=== PATIENT | female | born 1960 | race Caucasian/White ===

== ENCOUNTER → 2021-02-20 | Outpatient (CLI) | payer BC, OTHER ==
--- NOTE | 2021-02-20 11:54 | DIREP ---
PROCEDURE:XRAY SHOULDER MIN 2 VWS-LT COMPARISON:None. INDICATIONS:PAIN IN SHOULDER, STRAIN OF MUSCLES FINDINGS: BONES:Two views of the left shoulder. No acute fracture or dislocation is seen in the left glenohumeral joint. No fracture of the left clavicle, acromion, coracoid process or the glenoid is seen. 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 SOFT TISSUES:Normal. OTHER:Within the field of few, no left upper rib fractures, pneumothorax or left apical lung mass is seen the cardiac silhouette appears to be enlarged. 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 No acute fracture or dislocation is seen. Dictated by: Wilfredo Nolen MD on 02/20/2021 at 11:51 AM
--- NOTE | 2021-02-20 11:55 | DIREP ---
PROCEDURE:XRAY SHOULDER MIN 2 VWS-RT COMPARISON:None. INDICATIONS:PAIN IN SHOULDER, STRAIN OF MUSCLES FINDINGS: BONES:Two views of the right shoulder. No acute fracture or dislocation in the right glenohumeral joint. No fracture of the right clavicle as visualized. No fracture of the acromion, coracoid process or the glenoid is seen. JOINTS:Mild narrowing of the right glenohumeral joint with DJD in the right AC joint with minimally downsloping acromion. SOFT TISSUES:Normal. OTHER:Within the field of few, no right upper rib fractures, pneumothorax or right apical lung mass is seen CONCLUSION:Mild DJD in the right glenohumeral joint and the right AC joint. No acute fracture or dislocation is seen. Dictated by: Wilfredo Nolen MD on 02/20/2021 at 11:52 AM
== END | disposition home or self-care (01) ==
LOC: RAD 10:30
PROVIDERS: ATTEND Nurse Practitioner Family
DX: S46.011A Strain of muscle(s) and tendon(s) of the rotator cuff of right shoulder, initial encounter (principal); M19.012 Primary osteoarthritis, left shoulder; M19.011 Primary osteoarthritis, right shoulder; X58.XXXA Exposure to other specified factors, initial encounter; Y93.89 Activity, other specified; Y92.89 Other specified places as the place of occurrence of the external cause; Y99.8 Other external cause status
CPT/HCPCS: 73030-LT; 73030-RT

== ENCOUNTER → 2022-02-20 | Outpatient (CLI) | payer BC ==
--- NOTE | 2022-02-20 21:55 | DIREP ---
PROCEDURE:NM GASTRIC EMPTYING STUDY COMPARISON:None. INDICATIONS:NAUSEA, VOMITING, HX LEUKEMIA TECHNIQUE:After obtaining the patient's consent, images were obtained subsequent to the oral administration of 1.2 mCi of Tc-99m sulfur colloid labeled to solid food. Data were acquired for determination of gastric emptying. A 1 hour exam was obtained. FINDINGS: STOMACH:Normal appearance and emptying. OTHER:Negative. 0.5 hour: 65% retention Abnormally rapid gastric emptying if <70% 1 hour: 35% retention Abnormally rapid gastric emptying if <30% Abnormally delayed gastric emptying if >90% 2, 3, and 4 hour images were not obtained. CONCLUSION: Abnormally rapid early gastric emptying. Dictated by: Renetta Interiano MD on 02/20/2022 at 09:50 PM
== END | disposition home or self-care (01) ==
LOC: RAD 14:59
PROVIDERS: ATTEND Nurse Practitioner Family
DX: R11.0 Nausea (principal); R11.10 Vomiting, unspecified; Z85.6 Personal history of leukemia; Q89.8 Other specified congenital malformations
CPT/HCPCS: 78264; A9541